=== PATIENT | female | born 1955 | race Caucasian/White ===

== ENCOUNTER 2016-12-07 15:51 | Emergency (ER) | payer BC ==
[~2016-12-07] VITALS: Ht 165.1 cm; Wt 56.8 kg
[~2016-12-07 15:51] MED LIST: AMOXICILLIN875 MG PO; ANDRODERM2.5 MG/24 TD; B COMPLEX1 TA2 PO; BIOTIN1000 MCG PO; CARDI-OMEGA1000 MG PO; CENTRUM SILVER1 CTB PO; CEPHALEXIN500 M1 PO; CHILDREN'S ZYRT10 MG PO; CIPRO 500MG TA500 MG PO; CITRACAL + D CA1 TAB PO; CLOBETASOL PROP0.052 TOP; D-BIOTIN 500 M500 ML; ESTRACE0.1 MG/GM VG; ESTRADIOL VAG42.5 GM VG; FLONASE NASAL S16 GM NS; GLUTAMINE; LEVAQUIN 250MG250 MG PO; LIQUID MAGNESI400 MG PO; LUTEIN + KALE 11 CAP PO; MAGNESIUM250 M1 PO; MULTIVITAMIN FO1 CAP PO; NATURAL E400 IU PO; NORCO 325 MG-51 TAB PO; NORCO 325 MG-7.1 TAB PO; OMEGA-3 FISH1200 MG PO; SEPTRA DS 8001 TAB PO; SUPER B COMPLEX1 TA2 PO; TEMOVATE CREAM15 GM TP; TESTOSTERONE TOP; VITAMIN B650 MG PO; VITAMIN D31000 IU PO; XANAX .25M0.25 MG/TA PO; ZYRTEC 10MG10 MG PO; ZYRTEC ALLERGY10 MG PO
[2016-12-07 15:55] VITALS: TEMP 98.3
[2016-12-07] MEDS ORDERED: ESTRACE0.1 MG/GM VG (16:19)
[2016-12-07] MEDS ORDERED: [UNRECOGNIZED DRUG - OTHER] PO (16:20)
[2016-12-07 17:02] LABS: PH 6 (5-8); SQUAMOUS EPITHELIAL 0-2 /hpf; URINE APPEARANCE Clear; URINE BACTERIA None Seen /hpf; URINE BILIRUBIN Negative (NEGATIVE); URINE BLOOD Negative (NEGATIVE); URINE COLOR Straw; URINE GLUCOSE Negative (NEGATIVE); URINE KETONE Negative (NEGATIVE); URINE RBC 0-2 /hpf; URINE UROBILINOGEN Negative (NEGATIVE); URINE WBC 0-2 /hpf
[2016-12-07 18:21] LABS: ADJUSTED CALCIUM 8.8 mg/dL (8.4-10.2); ALBUMIN 4.1 gm/dL (3.5-5.0); BILIRUBIN,TOTAL 0.7 mg/dL (0.0-1.0); CALCIUM 8.9 mg/dL (8.4-10.2); CREATININE, serum 0.66 mg/dL (0.52-1.25); POTASSIUM 3.9 mmol/L (3.4-5.0); TOTAL PROTEIN 7.1 gm/dL (6.4-8.2)
[2016-12-07] MEDS ORDERED: FLEXERIL 1010 MG/TAB PO (19:34)
[2016-12-07 19:41] VITALS: BP 108/51; PULSE 61
== END 2016-12-07 19:42 | disposition home or self-care (01) ==
LOC: COL.ER 15:51
PROVIDERS: Emergency Medicine
DX: R10.31 Right lower quadrant pain (principal); M19.90 Unspecified osteoarthritis, unspecified site; Z85.3 Personal history of malignant neoplasm of breast; Z85.89 Personal history of malignant neoplasm of other organs and systems; Z90.710 Acquired absence of both cervix and uterus; Z90.722 Acquired absence of ovaries, bilateral; Z90.49 Acquired absence of other specified parts of digestive tract
CPT/HCPCS: J1885; J7030; Q9967

== ENCOUNTER 2017-07-25 13:00 | Outpatient (RCR) | payer BC ==
[2017-06-14 08:40] VITALS: BP 109/46; PULSE 58; TEMP 97.9
[2017-06-14 09:15] LABS: BASO % 0.7 % (0.0-2.0); EOS # 0.1 (0.0-0.7); EOS % 1.4 % (0-4.0); GRAN # 2.1 (1.4-6.5); GRAN % 50.2 % (42.2-75.2); HEMATOCRIT 39.2 % (37.0-47.0); HEMOGLOBIN 13.3 g/dl (12.5-16.0); LYMPH # 1.6 (1.2-3.4); LYMPH % 37.2 % (20.0-51.0); MEAN CELL VOLUME 104 fl (80.0-100.0); MEAN CORPUSCULAR HEMOGLOBIN 35 pg (27.0-31.0); MEAN CORPUSCULAR HGB CONC 34 g/dl (33.0-37.0); MEAN PLATELET VOLUME 10.3 fl (7.4-10.4); MONO # 0.4 (0.1-0.6); MONO % 10.3 % (1.7-9.3); PLATELET COUNT 228 K/mm3 (130-400); RED BLOOD COUNT 3.77 M/mm3 (4.10-5.30); REDCELL DISTRIBUTION WIDTH-CV 13.7 % (11.5-14.5)
[2017-06-14 09:29] LABS: ALBUMIN 4.4 gm/dL (3.5-5.0); BILIRUBIN,TOTAL 0.6 mg/dL (0.0-1.0); CALCIUM 9.2 mg/dL (8.4-10.2); CHOLESTEROL RISK RATIO 4.3; CREATININE, serum 0.59 mg/dL (0.52-1.25); POTASSIUM 3.9 mmol/L (3.4-5.0); TOTAL PROTEIN 7.1 gm/dL (6.4-8.2)
[2017-06-14 09:58] LABS: THYROID STIMULATING HORMONE 2.64 uIU/mL (0.465-4.680)
[~2017-07-25] VITALS: Ht 167.6 cm; Wt 60.0 kg
[~2017-07-25 13:00] MED LIST changes: +AMITRIPTYLINE H10 M1 PO; +FLEXERIL 1010 MG/TAB PO; -TEMOVATE CREAM15 GM TP; +TEMOVATE0.05% TP; +[UNRECOGNIZED DRUG - OTHER] PO
[2017-07-25 13:45] LABS: HEMATOCRIT 40.3 % (37.0-47.0); HEMOGLOBIN 13.7 g/dl (12.5-16.0); MEAN CELL VOLUME 99 fl (80.0-100.0); MEAN CORPUSCULAR HEMOGLOBIN 34 pg (27.0-31.0); MEAN CORPUSCULAR HGB CONC 34 g/dl (33.0-37.0); MEAN PLATELET VOLUME 9.7 fl (7.4-10.4); PLATELET COUNT 200 K/mm3 (130-400); RED BLOOD COUNT 4.08 M/mm3 (4.10-5.30); REDCELL DISTRIBUTION WIDTH-CV 13.2 % (11.5-14.5)
[2017-07-25 13:50] VITALS: BP 108/52; PULSE 60; TEMP 97.8
[2017-07-25 13:55] LABS: ALBUMIN 4.7 gm/dL (3.5-5.0); BILIRUBIN,TOTAL 0.6 mg/dL (0.0-1.0); CALCIUM 9.5 mg/dL (8.4-10.2); CREATININE, serum 0.67 mg/dL (0.52-1.25); POTASSIUM 4.1 mmol/L (3.4-5.0); TOTAL PROTEIN 7.8 gm/dL (6.4-8.2)
[2017-07-25 14:04] LABS: EOSINOPHIL 1 % (0-4); LYMPHOCYTE 40 % (20.0-51.0); NEUTROPHILS 54 % (42.0-75.2); PLATELET ESTIMATE NORMAL (NORMAL)
== END 2017-07-25 16:00 | disposition home or self-care (01) ==
LOC: EUO 13:00
PROVIDERS: Internal Medicine
DX: Z00.00 Encounter for general adult medical examination without abnormal findings (principal); C48.2 Malignant neoplasm of peritoneum, unspecified
CPT/HCPCS: J1644

== ENCOUNTER 2017-07-25 13:11 | Outpatient (RCR) | payer BC | END 2017-07-25 16:00 | disposition home or self-care (01) | LOC: EUO 13:11 | DX: Z01.89 Encounter for other specified special examinations (principal) ==

== ENCOUNTER → 2017-10-20 | Outpatient (CLI) | payer BC ==
[~2017-10-20] MED LIST changes: +CYTOXAN 50 PO
== END ==
LOC: MC.RAD 10:17
DX: N61.0 Mastitis without abscess (principal); N64.59 Other signs and symptoms in breast; R92.2 Inconclusive mammogram; C48.1 Malignant neoplasm of specified parts of peritoneum; N64.4 Mastodynia; L53.9 Erythematous condition, unspecified; Z85.3 Personal history of malignant neoplasm of breast

== ENCOUNTER 2017-11-07 14:30 | Outpatient (RCR) | payer BC ==
[2017-08-14 12:00] VITALS: BP 115/52; PULSE 62; TEMP 97.7
[2017-08-14 12:23] LABS: ALBUMIN 4.6 gm/dL (3.5-5.0); BILIRUBIN,TOTAL 0.6 mg/dL (0.0-1.0); CALCIUM 9.5 mg/dL (8.4-10.2); CREATININE, serum 0.66 mg/dL (0.52-1.25); POTASSIUM 4.1 mmol/L (3.4-5.0); TOTAL PROTEIN 7.7 gm/dL (6.4-8.2)
[2017-08-14 12:33] LABS: HEMATOCRIT 42.2 % (37.0-47.0); HEMOGLOBIN 14.3 g/dl (12.5-16.0); MEAN CELL VOLUME 99 fl (80.0-100.0); MEAN CORPUSCULAR HEMOGLOBIN 34 pg (27.0-31.0); MEAN CORPUSCULAR HGB CONC 34 g/dl (33.0-37.0); MEAN PLATELET VOLUME 10.1 fl (7.4-10.4); PLATELET COUNT 219 K/mm3 (130-400); RED BLOOD COUNT 4.27 M/mm3 (4.10-5.30); REDCELL DISTRIBUTION WIDTH-CV 13.4 % (11.5-14.5)
[2017-08-14 13:36] LABS: BAND 3 % (0-10); BASOPHIL 1 % (0-2); EOSINOPHIL 3 % (0-4); LYMPHOCYTE 50 % (20.0-51.0); METAMYELOCYTE 1 % (0-0); NEUTROPHILS 31 % (42.0-75.2); PLATELET ESTIMATE NORMAL (NORMAL)
[2017-08-14 13:37] LABS: TOXIC GRANULATION PRESENT
[2017-09-04 13:18] VITALS: BP 119/62; PULSE 73; TEMP 98.1
[2017-09-04 13:36] LABS: HEMATOCRIT 41.1 % (37.0-47.0); HEMOGLOBIN 13.7 g/dl (12.5-16.0); MEAN CELL VOLUME 97 fl (80.0-100.0); MEAN CORPUSCULAR HEMOGLOBIN 33 pg (27.0-31.0); MEAN CORPUSCULAR HGB CONC 33 g/dl (33.0-37.0); PLATELET COUNT 210 K/mm3 (130-400); RED BLOOD COUNT 4.22 M/mm3 (4.10-5.30); REDCELL DISTRIBUTION WIDTH-CV 13.6 % (11.5-14.5)
[2017-09-04 13:47] LABS: ALBUMIN 4.4 gm/dL (3.5-5.0); BILIRUBIN,TOTAL 0.4 mg/dL (0.0-1.0); CALCIUM 9.4 mg/dL (8.4-10.2); CREATININE, serum 0.66 mg/dL (0.52-1.25); POTASSIUM 3.9 mmol/L (3.4-5.0); TOTAL PROTEIN 7.2 gm/dL (6.4-8.2)
[2017-09-04 14:05] LABS: BAND 8 % (0-10); EOSINOPHIL 1 % (0-4); LYMPHOCYTE 29 % (20.0-51.0); METAMYELOCYTE 1 % (0-0); NEUTROPHILS 61 % (42.0-75.2); PLATELET ESTIMATE NORMAL (NORMAL)
[2017-09-25 12:30] VITALS: BP 124/46; PULSE 72; TEMP 97.4
[2017-09-25 13:06] LABS: HEMATOCRIT 40.6 % (37.0-47.0); HEMOGLOBIN 13.9 g/dl (12.5-16.0); MEAN CELL VOLUME 96 fl (80.0-100.0); MEAN CORPUSCULAR HEMOGLOBIN 33 pg (27.0-31.0); MEAN CORPUSCULAR HGB CONC 34 g/dl (33.0-37.0); MEAN PLATELET VOLUME 9.6 fl (7.4-10.4); PLATELET COUNT 193 K/mm3 (130-400); RED BLOOD COUNT 4.23 M/mm3 (4.10-5.30)
[2017-09-25 13:26] LABS: BAND 9 % (0-10); BASOPHIL 1 % (0-2); EOSINOPHIL 2 % (0-4); LYMPHOCYTE 22 % (20.0-51.0); NEUTROPHILS 63 % (42.0-75.2)
[2017-09-25 13:27] LABS: PLATELET ESTIMATE NORMAL (NORMAL)
[2017-09-25 13:39] LABS: ALBUMIN 4.3 gm/dL (3.5-5.0); BILIRUBIN,TOTAL 0.5 mg/dL (0.0-1.0); CREATININE, serum 0.62 mg/dL (0.52-1.25); POTASSIUM 4.4 mmol/L (3.4-5.0); TOTAL PROTEIN 7.3 gm/dL (6.4-8.2)
[2017-10-16 13:14] VITALS: BP 112/50; PULSE 68; TEMP 98
[2017-10-16 13:24] LABS: HEMATOCRIT 40.8 % (37.0-47.0); MEAN CELL VOLUME 96 fl (80.0-100.0); MEAN CORPUSCULAR HEMOGLOBIN 33 pg (27.0-31.0); MEAN CORPUSCULAR HGB CONC 34 g/dl (33.0-37.0); MEAN PLATELET VOLUME 9.6 fl (7.4-10.4); PLATELET COUNT 214 K/mm3 (130-400); RED BLOOD COUNT 4.27 M/mm3 (4.10-5.30); REDCELL DISTRIBUTION WIDTH-CV 14.3 % (11.5-14.5)
[2017-10-16 13:33] LABS: ALBUMIN 4.1 gm/dL (3.5-5.0); BILIRUBIN,TOTAL 0.5 mg/dL (0.0-1.0); CALCIUM 9.2 mg/dL (8.4-10.2); CREATININE, serum 0.58 mg/dL (0.52-1.25); POTASSIUM 4.1 mmol/L (3.4-5.0); TOTAL PROTEIN 7.6 gm/dL (6.4-8.2)
[2017-10-16 13:39] LABS: ANISOCYTOSIS 1+; BAND 4 % (0-10); EOSINOPHIL 3 % (0-4); LYMPHOCYTE 26 % (20.0-51.0); NEUTROPHILS 66 % (42.0-75.2); PLATELET ESTIMATE NORMAL (NORMAL)
[2017-11-02 11:30] VITALS: BP 116/62; PULSE 66; TEMP 97.9
[2017-11-02 11:43] LABS: MEAN CELL VOLUME 98 fl (80.0-100.0); MEAN CORPUSCULAR HEMOGLOBIN 33 pg (27.0-31.0); MEAN CORPUSCULAR HGB CONC 34 g/dl (33.0-37.0); PLATELET COUNT 174 K/mm3 (130-400); RED BLOOD COUNT 3.89 M/mm3 (4.10-5.30); REDCELL DISTRIBUTION WIDTH-CV 13.2 % (11.5-14.5)
[2017-11-02 11:56] LABS: BILIRUBIN,TOTAL 0.4 mg/dL (0.0-1.0); CALCIUM 9.3 mg/dL (8.4-10.2); CREATININE, serum 0.58 mg/dL (0.52-1.25); TOTAL PROTEIN 7.6 gm/dL (6.4-8.2)
[2017-11-02 12:31] LABS: BAND 5 % (0-10); EOSINOPHIL 4 % (0-4); LYMPHOCYTE 25 % (20.0-51.0); NEUTROPHILS 66 % (42.0-75.2); PLATELET ESTIMATE NORMAL (NORMAL)
[~2017-11-07] VITALS: Ht 167.6 cm; Wt 62.5 kg
[2017-11-07 14:14] VITALS: BP 127/52; PULSE 72; TEMP 98
[~2017-11-07 14:30] MED LIST changes: +GEMZAR IV; +[UNRECOGNIZED DRUG - OTHER] IV
[2017-11-07 14:43] LABS: HEMOGLOBIN 12.1 g/dl (12.5-16.0); MEAN CELL VOLUME 98 fl (80.0-100.0); MEAN CORPUSCULAR HEMOGLOBIN 34 pg (27.0-31.0); MEAN CORPUSCULAR HGB CONC 34 g/dl (33.0-37.0); MEAN PLATELET VOLUME 9.4 fl (7.4-10.4); PLATELET COUNT 130 K/mm3 (130-400); RED BLOOD COUNT 3.61 M/mm3 (4.10-5.30); REDCELL DISTRIBUTION WIDTH-CV 13.2 % (11.5-14.5)
[2017-11-07 14:48] LABS: HEMATOCRIT 35.4 % (37.0-47.0)
[2017-11-07 14:50] LABS: ALBUMIN 3.9 gm/dL (3.5-5.0); BILIRUBIN,TOTAL 0.5 mg/dL (0.0-1.0); CALCIUM 9.1 mg/dL (8.4-10.2); CREATININE, serum 0.56 mg/dL (0.52-1.25); TOTAL PROTEIN 7.5 gm/dL (6.4-8.2)
[2017-11-07 14:53] LABS: ANISOCYTOSIS 1+; BAND 2 % (0-10); LYMPHOCYTE 21 % (20.0-51.0); NEUTROPHILS 76 % (42.0-75.2); PLATELET ESTIMATE NORMAL (NORMAL)
== END 2017-11-12 | disposition still patient (30) ==
LOC: EUO
PROVIDERS: Internal Medicine
DX: C48.1 Malignant neoplasm of specified parts of peritoneum (principal)
CPT/HCPCS: J1644

== ENCOUNTER 2018-01-29 08:00 | Outpatient (RCR) | payer BC ==
[2017-11-16 11:35] VITALS: BP 112/83; PULSE 72; TEMP 98
[2017-11-16 12:06] LABS: HEMATOCRIT 34.6 % (37.0-47.0); HEMOGLOBIN 11.5 g/dl (12.5-16.0); MEAN CELL VOLUME 101 fl (80.0-100.0); MEAN CORPUSCULAR HEMOGLOBIN 33 pg (27.0-31.0); MEAN CORPUSCULAR HGB CONC 33 g/dl (33.0-37.0); MEAN PLATELET VOLUME 9.4 fl (7.4-10.4); PLATELET COUNT 303 K/mm3 (130-400); RED BLOOD COUNT 3.44 M/mm3 (4.10-5.30); REDCELL DISTRIBUTION WIDTH-CV 14.2 % (11.5-14.5)
[2017-11-16 12:17] LABS: ALBUMIN 3.4 gm/dL (3.5-5.0); BILIRUBIN,TOTAL 0.2 mg/dL (0.0-1.0); CALCIUM 7.8 mg/dL (8.4-10.2); CREATININE, serum 0.49 mg/dL (0.52-1.25); POTASSIUM 3.4 mmol/L (3.4-5.0); TOTAL PROTEIN 6.2 gm/dL (6.4-8.2)
[2017-11-16 13:13] LABS: ANISOCYTOSIS 1+; BAND 13 % (0-10); EOSINOPHIL 3 % (0-4); LYMPHOCYTE 37 % (20.0-51.0); METAMYELOCYTE 2 % (0-0); NEUTROPHILS 43 % (42.0-75.2); PLATELET ESTIMATE NORMAL (NORMAL)
[2017-11-21 14:43] LABS: HEMOGLOBIN 12.3 g/dl (12.5-16.0); MEAN CELL VOLUME 100 fl (80.0-100.0); MEAN CORPUSCULAR HEMOGLOBIN 34 pg (27.0-31.0); MEAN CORPUSCULAR HGB CONC 34 g/dl (33.0-37.0); MEAN PLATELET VOLUME 9.6 fl (7.4-10.4); PLATELET COUNT 414 K/mm3 (130-400); RED BLOOD COUNT 3.67 M/mm3 (4.10-5.30); REDCELL DISTRIBUTION WIDTH-CV 13.5 % (11.5-14.5)
[2017-11-21 14:46] VITALS: BP 115/45; PULSE 69; TEMP 97.9
[2017-11-21 14:47] LABS: BILIRUBIN,TOTAL 0.5 mg/dL (0.0-1.0); CALCIUM 9.1 mg/dL (8.4-10.2); CREATININE, serum 0.61 mg/dL (0.52-1.25); TOTAL PROTEIN 7.6 gm/dL (6.4-8.2)
[2017-11-21 14:54] LABS: HEMATOCRIT 36.5 % (37.0-47.0)
[2017-11-21 15:13] LABS: ANISOCYTOSIS 1+; BAND 3 % (0-10); EOSINOPHIL 3 % (0-4); LYMPHOCYTE 18 % (20.0-51.0); NEUTROPHILS 74 % (42.0-75.2); PLATELET ESTIMATE NORMAL (NORMAL)
[2017-11-28 14:33] LABS: HEMOGLOBIN 11.7 g/dl (12.5-16.0); MEAN CELL VOLUME 101 fl (80.0-100.0); MEAN CORPUSCULAR HEMOGLOBIN 34 pg (27.0-31.0); MEAN CORPUSCULAR HGB CONC 33 g/dl (33.0-37.0); MEAN PLATELET VOLUME 9.7 fl (7.4-10.4); PLATELET COUNT 200 K/mm3 (130-400); RED BLOOD COUNT 3.47 M/mm3 (4.10-5.30); REDCELL DISTRIBUTION WIDTH-CV 13.7 % (11.5-14.5)
[2017-11-28 14:45] LABS: ALBUMIN 3.9 gm/dL (3.5-5.0); BILIRUBIN,TOTAL 0.5 mg/dL (0.0-1.0); CALCIUM 9.1 mg/dL (8.4-10.2); CREATININE, serum 0.6 mg/dL (0.52-1.25); POTASSIUM 4.2 mmol/L (3.4-5.0); TOTAL PROTEIN 7.1 gm/dL (6.4-8.2)
[2017-11-28 15:01] LABS: BAND 2 % (0-10); EOSINOPHIL 2 % (0-4); LYMPHOCYTE 25 % (20.0-51.0); NEUTROPHILS 71 % (42.0-75.2); PLATELET ESTIMATE NORMAL (NORMAL)
[2017-11-28 15:02] LABS: ANISOCYTOSIS 2+; MICROCYTOSIS 1+
[2017-12-05 14:20] VITALS: BP 125/55; PULSE 75; TEMP 98.1
[2017-12-05 14:36] LABS: HEMATOCRIT 37.5 % (37.0-47.0); HEMOGLOBIN 12.6 g/dl (12.5-16.0); MEAN CELL VOLUME 101 fl (80.0-100.0); MEAN CORPUSCULAR HEMOGLOBIN 34 pg (27.0-31.0); MEAN CORPUSCULAR HGB CONC 34 g/dl (33.0-37.0); MEAN PLATELET VOLUME 9.9 fl (7.4-10.4); PLATELET COUNT 164 K/mm3 (130-400); RED BLOOD COUNT 3.71 M/mm3 (4.10-5.30); REDCELL DISTRIBUTION WIDTH-CV 14.4 % (11.5-14.5)
[2017-12-05 14:50] LABS: ALBUMIN 4.1 gm/dL (3.5-5.0); BILIRUBIN,TOTAL 0.5 mg/dL (0.0-1.0); CALCIUM 9.1 mg/dL (8.4-10.2); CREATININE, serum 0.64 mg/dL (0.52-1.25); POTASSIUM 4.2 mmol/L (3.4-5.0); TOTAL PROTEIN 7.6 gm/dL (6.4-8.2)
[2017-12-05 15:10] LABS: BAND 4 % (0-10); EOSINOPHIL 2 % (0-4); LYMPHOCYTE 29 % (20.0-51.0); MYELOCYTE 1 % (0-0); NEUTROPHILS 63 % (42.0-75.2); PLATELET ESTIMATE NORMAL (NORMAL)
[2017-12-05 15:11] LABS: ANISOCYTOSIS 3+; MICROCYTOSIS 1+
[2017-12-11 09:57] LABS: HEMATOCRIT 37.4 % (37.0-47.0); HEMOGLOBIN 12.6 g/dl (12.5-16.0); MEAN CELL VOLUME 99 fl (80.0-100.0); MEAN CORPUSCULAR HEMOGLOBIN 33 pg (27.0-31.0); MEAN CORPUSCULAR HGB CONC 34 g/dl (33.0-37.0); MEAN PLATELET VOLUME 9.7 fl (7.4-10.4); PLATELET COUNT 308 K/mm3 (130-400); RED BLOOD COUNT 3.78 M/mm3 (4.10-5.30); REDCELL DISTRIBUTION WIDTH-CV 14.2 % (11.5-14.5)
[2017-12-11 10:16] LABS: BILIRUBIN,TOTAL 0.9 mg/dL (0.0-1.0); CALCIUM 9.4 mg/dL (8.4-10.2); CREATININE, serum 0.59 mg/dL (0.52-1.25); POTASSIUM 4.3 mmol/L (3.4-5.0); TOTAL PROTEIN 7.5 gm/dL (6.4-8.2)
[2017-12-11 10:40] VITALS: BP 121/44; PULSE 71; TEMP 98.4
[2017-12-11 10:57] LABS: BAND 4 % (0-10); LYMPHOCYTE 28 % (20.0-51.0); NEUTROPHILS 65 % (42.0-75.2); OVALOCYTES 1+; PLATELET ESTIMATE NORMAL (NORMAL)
[2017-12-19 14:11] VITALS: BP 114/49; PULSE 69; TEMP 98.4
[2017-12-19 14:11] LABS: HEMOGLOBIN 11.9 g/dl (12.5-16.0); MEAN CELL VOLUME 101 fl (80.0-100.0); MEAN CORPUSCULAR HEMOGLOBIN 34 pg (27.0-31.0); MEAN CORPUSCULAR HGB CONC 33 g/dl (33.0-37.0); MEAN PLATELET VOLUME 9.8 fl (7.4-10.4); PLATELET COUNT 213 K/mm3 (130-400); RED BLOOD COUNT 3.55 M/mm3 (4.10-5.30); REDCELL DISTRIBUTION WIDTH-CV 14.3 % (11.5-14.5)
[2017-12-19 14:13] LABS: HEMATOCRIT 35.8 % (37.0-47.0)
[2017-12-19 14:18] LABS: ALBUMIN 3.8 gm/dL (3.5-5.0); BILIRUBIN,TOTAL 0.6 mg/dL (0.0-1.0); CALCIUM 9.1 mg/dL (8.4-10.2); CREATININE, serum 0.64 mg/dL (0.52-1.25); POTASSIUM 4.1 mmol/L (3.4-5.0); TOTAL PROTEIN 7.2 gm/dL (6.4-8.2)
[2017-12-19 14:42] LABS: BAND 1 % (0-10); BASOPHIL 1 % (0-2); EOSINOPHIL 3 % (0-4); LYMPHOCYTE 22 % (20.0-51.0); METAMYELOCYTE 1 % (0-0); NEUTROPHILS 71 % (42.0-75.2); PLATELET ESTIMATE NORMAL (NORMAL)
[2017-12-26 14:12] VITALS: BP 122/61; PULSE 65; TEMP 97.4
[2017-12-26 14:43] LABS: HEMATOCRIT 37.4 % (37.0-47.0); HEMOGLOBIN 12.5 g/dl (12.5-16.0); MEAN CELL VOLUME 101 fl (80.0-100.0); MEAN CORPUSCULAR HEMOGLOBIN 34 pg (27.0-31.0); MEAN CORPUSCULAR HGB CONC 33 g/dl (33.0-37.0); MEAN PLATELET VOLUME 9.7 fl (7.4-10.4); PLATELET COUNT 195 K/mm3 (130-400); RED BLOOD COUNT 3.71 M/mm3 (4.10-5.30); REDCELL DISTRIBUTION WIDTH-CV 14.9 % (11.5-14.5)
[2017-12-26 14:46] LABS: BILIRUBIN,TOTAL 0.3 mg/dL (0.0-1.0); CALCIUM 9.3 mg/dL (8.4-10.2); CREATININE, serum 0.69 mg/dL (0.52-1.25); TOTAL PROTEIN 7.4 gm/dL (6.4-8.2)
[2017-12-26 15:01] LABS: BAND 4 % (0-10); EOSINOPHIL 2 % (0-4); LYMPHOCYTE 26 % (20.0-51.0); NEUTROPHILS 55 % (42.0-75.2)
[2017-12-26 15:02] LABS: PLATELET ESTIMATE NORMAL (NORMAL)
[2018-01-02 14:24] VITALS: BP 113/40; PULSE 69; TEMP 98.3
[2018-01-02 14:58] LABS: HEMOGLOBIN 12.2 g/dl (12.5-16.0); MEAN CELL VOLUME 99 fl (80.0-100.0); MEAN CORPUSCULAR HEMOGLOBIN 34 pg (27.0-31.0); MEAN CORPUSCULAR HGB CONC 34 g/dl (33.0-37.0); MEAN PLATELET VOLUME 10.2 fl (7.4-10.4); PLATELET COUNT 357 K/mm3 (130-400); RED BLOOD COUNT 3.64 M/mm3 (4.10-5.30); REDCELL DISTRIBUTION WIDTH-CV 14.2 % (11.5-14.5)
[2018-01-02 15:02] LABS: HEMATOCRIT 36.1 % (37.0-47.0)
[2018-01-02 15:08] LABS: ALBUMIN 3.9 gm/dL (3.5-5.0); BILIRUBIN,TOTAL 0.4 mg/dL (0.0-1.0); CALCIUM 9.2 mg/dL (8.4-10.2); CREATININE, serum 0.67 mg/dL (0.52-1.25); TOTAL PROTEIN 7.4 gm/dL (6.4-8.2)
[2018-01-02 15:25] LABS: EOSINOPHIL 4 % (0-4); LYMPHOCYTE 20 % (20.0-51.0); NEUTROPHILS 76 % (42.0-75.2)
[2018-01-02 15:26] LABS: ANISOCYTOSIS 1+; PLATELET ESTIMATE NORMAL (NORMAL)
[2018-01-09 07:35] VITALS: BP 116/61; PULSE 64; TEMP 97.3
[2018-01-09 07:50] LABS: HEMATOCRIT 37.1 % (37.0-47.0); HEMOGLOBIN 12.2 g/dl (12.5-16.0); MEAN CELL VOLUME 102 fl (80.0-100.0); MEAN CORPUSCULAR HEMOGLOBIN 33 pg (27.0-31.0); MEAN CORPUSCULAR HGB CONC 33 g/dl (33.0-37.0); MEAN PLATELET VOLUME 9.9 fl (7.4-10.4); PLATELET COUNT 217 K/mm3 (130-400); RED BLOOD COUNT 3.65 M/mm3 (4.10-5.30); REDCELL DISTRIBUTION WIDTH-CV 14.5 % (11.5-14.5)
[2018-01-09 08:00] LABS: ALBUMIN 4.1 gm/dL (3.5-5.0); BILIRUBIN,TOTAL 0.5 mg/dL (0.0-1.0); CALCIUM 8.8 mg/dL (8.4-10.2); CREATININE, serum 0.55 mg/dL (0.52-1.25); TOTAL PROTEIN 7.4 gm/dL (6.4-8.2)
[2018-01-09 11:10] LABS: BASOPHIL 1 % (0-2); EOSINOPHIL 7 % (0-4); LYMPHOCYTE 27 % (20.0-51.0); NEUTROPHILS 52 % (42.0-75.2); OVALOCYTES 1+; PLATELET ESTIMATE NORMAL (NORMAL)
[2018-01-09 11:11] LABS: HYPOCHROMIA 1+
[2018-01-16 14:46] VITALS: BP 121/51; PULSE 73; TEMP 98.6
[2018-01-16 14:52] LABS: HEMOGLOBIN 11.8 g/dl (12.5-16.0); MEAN CELL VOLUME 102 fl (80.0-100.0); MEAN CORPUSCULAR HEMOGLOBIN 33 pg (27.0-31.0); MEAN CORPUSCULAR HGB CONC 33 g/dl (33.0-37.0); MEAN PLATELET VOLUME 9.7 fl (7.4-10.4); PLATELET COUNT 183 K/mm3 (130-400); RED BLOOD COUNT 3.56 M/mm3 (4.10-5.30); REDCELL DISTRIBUTION WIDTH-CV 15.1 % (11.5-14.5)
[2018-01-16 14:57] LABS: HEMATOCRIT 36.2 % (37.0-47.0)
[2018-01-16 15:02] LABS: BILIRUBIN,TOTAL 0.3 mg/dL (0.0-1.0); CALCIUM 8.9 mg/dL (8.4-10.2); CREATININE, serum 0.67 mg/dL (0.52-1.25); POTASSIUM 3.7 mmol/L (3.4-5.0); TOTAL PROTEIN 7.1 gm/dL (6.4-8.2)
[2018-01-16 15:10] LABS: ANISOCYTOSIS 1+; BAND 8 % (0-10); EOSINOPHIL 2 % (0-4); LYMPHOCYTE 26 % (20.0-51.0); NEUTROPHILS 63 % (42.0-75.2); PLATELET ESTIMATE NORMAL (NORMAL)
[2018-01-23 14:50] VITALS: BP 104/52; PULSE 69; TEMP 98.9
[2018-01-23 15:03] LABS: HEMOGLOBIN 11.7 g/dl (12.5-16.0); MEAN CELL VOLUME 100 fl (80.0-100.0); MEAN CORPUSCULAR HEMOGLOBIN 33 pg (27.0-31.0); MEAN CORPUSCULAR HGB CONC 33 g/dl (33.0-37.0); MEAN PLATELET VOLUME 9.8 fl (7.4-10.4); PLATELET COUNT 376 K/mm3 (130-400); RED BLOOD COUNT 3.55 M/mm3 (4.10-5.30); REDCELL DISTRIBUTION WIDTH-CV 14.4 % (11.5-14.5)
[2018-01-23 15:05] LABS: HEMATOCRIT 35.5 % (37.0-47.0)
[2018-01-23 15:12] LABS: BILIRUBIN,TOTAL 0.3 mg/dL (0.0-1.0); CALCIUM 9.1 mg/dL (8.4-10.2); CREATININE, serum 0.62 mg/dL (0.52-1.25); POTASSIUM 4.3 mmol/L (3.4-5.0)
[2018-01-23 15:27] LABS: ANISOCYTOSIS 2+; BAND 3 % (0-10); BASOPHIL 3 % (0-2); EOSINOPHIL 1 % (0-4); LYMPHOCYTE 20 % (20.0-51.0); METAMYELOCYTE 1 % (0-0); MICROCYTOSIS 1+; MYELOCYTE 10 % (0-0); NEUTROPHILS 61 % (42.0-75.2); PLATELET ESTIMATE NORMAL (NORMAL)
[~2018-01-29] VITALS: Ht 167.6 cm; Wt 61.0 kg
[2018-01-29 08:00] VITALS: BP 100/52; PULSE 62; TEMP 98
[2018-01-29 08:37] LABS: HEMATOCRIT 37.9 % (37.0-47.0); HEMOGLOBIN 12.3 g/dl (12.5-16.0); MEAN CELL VOLUME 102 fl (80.0-100.0); MEAN CORPUSCULAR HEMOGLOBIN 33 pg (27.0-31.0); MEAN CORPUSCULAR HGB CONC 33 g/dl (33.0-37.0); MEAN PLATELET VOLUME 9.7 fl (7.4-10.4); PLATELET COUNT 248 K/mm3 (130-400); RED BLOOD COUNT 3.73 M/mm3 (4.10-5.30); REDCELL DISTRIBUTION WIDTH-CV 14.6 % (11.5-14.5)
[2018-01-29 08:41] LABS: ALBUMIN 4.2 gm/dL (3.5-5.0); BILIRUBIN,TOTAL 0.9 mg/dL (0.0-1.0); CALCIUM 9.3 mg/dL (8.4-10.2); CREATININE, serum 0.58 mg/dL (0.52-1.25); POTASSIUM 3.9 mmol/L (3.4-5.0); TOTAL PROTEIN 7.4 gm/dL (6.4-8.2)
[2018-01-29 09:11] LABS: BAND 2 % (0-10); EOSINOPHIL 1 % (0-4); LYMPHOCYTE 28 % (20.0-51.0); NEUTROPHILS 67 % (42.0-75.2)
[2018-01-29 09:15] LABS: HYPOCHROMIA 1+
[2018-01-29 09:16] LABS: ANISOCYTOSIS 1+
[2018-01-29 09:18] LABS: PLATELET ESTIMATE NORMAL (NORMAL)
== END 2018-02-06 16:54 | disposition home or self-care (01) ==
LOC: EUO 08:00
PROVIDERS: Internal Medicine
DX: C48.1 Malignant neoplasm of specified parts of peritoneum (principal)
CPT/HCPCS: J1644

== ENCOUNTER 2018-04-11 18:59 | Inpatient (IN) | payer BC ==
[~2018-04-11] VITALS: Ht 165.1 cm; Wt 59.1 kg
[2018-04-11 19:53] LABS: BASO % 0.6 % (0.0-2.0); EOS % 0.6 % (0-4.0); GRAN # 4.6 (1.4-6.5); GRAN % 72.1 % (42.2-75.2); HEMOGLOBIN 11.1 g/dl (12.5-16.0); LYMPH # 1.1 (1.2-3.4); LYMPH % 16.6 % (20.0-51.0); MEAN CELL VOLUME 95 fl (80.0-100.0); MEAN CORPUSCULAR HEMOGLOBIN 31 pg (27.0-31.0); MEAN CORPUSCULAR HGB CONC 33 g/dl (33.0-37.0); MEAN PLATELET VOLUME 9.8 fl (7.4-10.4); MONO # 0.6 (0.1-0.6); MONO % 9.8 % (1.7-9.3); PLATELET COUNT 315 K/mm3 (130-400); RED BLOOD COUNT 3.58 M/mm3 (4.10-5.30); REDCELL DISTRIBUTION WIDTH-CV 14.2 % (11.5-14.5)
[2018-04-11 19:55] LABS: COLLECTION METHOD CLEAN CATCH
[2018-04-11 19:58] LABS: HEMATOCRIT 34.1 % (37.0-47.0)
[2018-04-11 20:04] LABS: ALBUMIN 3.6 gm/dL (3.5-5.0); BILIRUBIN,TOTAL 0.3 mg/dL (0.0-1.0); C-REACTIVE PROTEIN 6.8 mg/dL (0.0-0.9); CALCIUM 8.7 mg/dL (8.4-10.2); CREATININE, serum 0.56 mg/dL (0.52-1.25); POTASSIUM 3.8 mmol/L (3.4-5.0)
[2018-04-11 20:10] LABS: MUCOUS Present /lpf; PH 7 (5-8); SQUAMOUS EPITHELIAL 0-2 /hpf; URINE APPEARANCE Clear; URINE BACTERIA None Seen /hpf; URINE BILIRUBIN Negative (NEGATIVE); URINE BLOOD Negative (NEGATIVE); URINE COLOR Straw; URINE GLUCOSE Negative (NEGATIVE); URINE KETONE Negative (NEGATIVE); URINE LEUKOCYTE ESTERASE Negative (NEGATIVE); URINE NITRATE Negative (NEGATIVE); URINE PROTEIN(semi-quant) Negative (NEGATIVE); URINE RBC 0-2 /hpf; URINE UROBILINOGEN Negative (NEGATIVE)
[2018-04-11] MEDS ORDERED: ZARXIO300 MCG/0. IJ (21:43)
[2018-04-11] MEDS ORDERED: AVASTIN 100M25 MG/ML IV ×2 (21:44→21:45)
[2018-04-11] MEDS ORDERED: DOXIL (21:44)
[2018-04-11] MEDS ORDERED: TYLENOL 500MG500 MG PO (23:38)
[2018-04-11] MEDS ORDERED: RECTIV0.4% RC (23:41)
[2018-04-11] MEDS ORDERED: COMPAZINE 110 MG/TAB PO (23:42)
[2018-04-12 00:48] VITALS: BP 128/44; PULSE 76; TEMP 98.5
[2018-04-12 04:35] VITALS: BP 110/61; PULSE 71; TEMP 98.4
[2018-04-12 07:42] LABS: BASO % 0.8 % (0.0-2.0); EOS # 0.1 (0.0-0.7); EOS % 1.2 % (0-4.0); GRAN # 3.6 (1.4-6.5); GRAN % 70.4 % (42.2-75.2); HEMOGLOBIN 10.2 g/dl (12.5-16.0); LYMPH # 0.7 (1.2-3.4); LYMPH % 14.4 % (20.0-51.0); MEAN CELL VOLUME 98 fl (80.0-100.0); MEAN CORPUSCULAR HEMOGLOBIN 31 pg (27.0-31.0); MEAN CORPUSCULAR HGB CONC 32 g/dl (33.0-37.0); MEAN PLATELET VOLUME 9.5 fl (7.4-10.4); MONO # 0.6 (0.1-0.6); MONO % 12.4 % (1.7-9.3); PLATELET COUNT 294 K/mm3 (130-400); REDCELL DISTRIBUTION WIDTH-CV 14.5 % (11.5-14.5)
[2018-04-12 07:44] LABS: HEMATOCRIT 32.3 % (37.0-47.0)
[2018-04-12 07:46] VITALS: BP 126/50; PULSE 69; TEMP 98.3
[2018-04-12 07:53] LABS: CALCIUM 8.2 mg/dL (8.4-10.2); CREATININE, serum 0.47 mg/dL (0.52-1.25); POTASSIUM 3.8 mmol/L (3.4-5.0)
[2018-04-12 11:36] VITALS: BP 107/52; PULSE 71; TEMP 98.7
[2018-04-12 13:05] LABS: PROTHROMBIN TIME 11.8 SECONDS (9.7-12.8)
[2018-04-12 15:38] LABS: PERITONEAL -POLYMORPHONUCLEAR 40.9 % (0-25); PERITONEAL FLUID RBC 2000 /mm3 (0-0)
[2018-04-12 16:17] VITALS: BP 114/53; PULSE 68; TEMP 97.4
[2018-04-12 21:44] VITALS: BP 106/47; PULSE 75; TEMP 98.3
[2018-04-13] VITALS (7 sets, daily range): BP systolic 107–120; BP diastolic 43–58; PULSE 64–89; TEMP 97.3–101.3
[2018-04-13 07:27] LABS: BASO % 0.9 % (0.0-2.0); EOS # 0.1 (0.0-0.7); EOS % 1.3 % (0-4.0); GRAN # 2.8 (1.4-6.5); GRAN % 62.9 % (42.2-75.2); HEMATOCRIT 31.7 % (37.0-47.0); HEMOGLOBIN 10.2 g/dl (12.5-16.0); LYMPH # 0.9 (1.2-3.4); LYMPH % 19.1 % (20.0-51.0); MEAN CELL VOLUME 96 fl (80.0-100.0); MEAN CORPUSCULAR HEMOGLOBIN 31 pg (27.0-31.0); MEAN CORPUSCULAR HGB CONC 32 g/dl (33.0-37.0); MEAN PLATELET VOLUME 9.5 fl (7.4-10.4); MONO # 0.7 (0.1-0.6); MONO % 15.1 % (1.7-9.3); PLATELET COUNT 333 K/mm3 (130-400); REDCELL DISTRIBUTION WIDTH-CV 14.4 % (11.5-14.5)
[2018-04-13 07:35] LABS: CALCIUM 7.6 mg/dL (8.4-10.2); CREATININE, serum 0.59 mg/dL (0.52-1.25); POTASSIUM 3.4 mmol/L (3.4-5.0)
[2018-04-14 03:23] VITALS: BP 134/66; PULSE 107; TEMP 97.6
[2018-04-14 06:20] LABS: BASO # 0.1 (0.0-0.2); BASO % 1.6 % (0.0-2.0); EOS # 0.1 (0.0-0.7); EOS % 3.3 % (0-4.0); GRAN # 2.1 (1.4-6.5); GRAN % 57.9 % (42.2-75.2); HEMOGLOBIN 10.2 g/dl (12.5-16.0); LYMPH # 0.8 (1.2-3.4); LYMPH % 21.2 % (20.0-51.0); MEAN CELL VOLUME 97 fl (80.0-100.0); MEAN CORPUSCULAR HEMOGLOBIN 31 pg (27.0-31.0); MEAN CORPUSCULAR HGB CONC 32 g/dl (33.0-37.0); MEAN PLATELET VOLUME 9.2 fl (7.4-10.4); MONO # 0.6 (0.1-0.6); MONO % 15.5 % (1.7-9.3); PLATELET COUNT 375 K/mm3 (130-400); RED BLOOD COUNT 3.31 M/mm3 (4.10-5.30); REDCELL DISTRIBUTION WIDTH-CV 14.4 % (11.5-14.5)
[2018-04-14 06:44] LABS: CALCIUM 7.7 mg/dL (8.4-10.2); CREATININE, serum 0.57 mg/dL (0.52-1.25)
[2018-04-14 06:46] LABS: POTASSIUM 3.6 mmol/L (3.4-5.0)
[2018-04-14 07:24] VITALS: BP 113/54; PULSE 66; TEMP 98.1
[2018-04-14 12:01] VITALS: BP 114/47; PULSE 69; TEMP 98
[2018-04-14 15:52] VITALS: BP 120/51; PULSE 78; TEMP 97.9
[2018-04-14 20:00] VITALS: BP 124/68; PULSE 77; TEMP 98.5
[2018-04-15 04:11] VITALS: BP 130/51; PULSE 104; TEMP 97.7
[2018-04-15 05:35] VITALS: BP 114/56; PULSE 68; TEMP 97.1
[2018-04-15 08:18] VITALS: BP 120/60; PULSE 64; TEMP 97.6
[2018-04-15 10:48] VITALS: BP 107/41; PULSE 73; TEMP 98.8
[2018-04-15 15:50] VITALS: BP 117/47; PULSE 71; TEMP 98.7
[2018-04-15 19:31] VITALS: BP 118/83; PULSE 81; TEMP 98.1
[2018-04-16 01:59] VITALS: BP 128/58; PULSE 72; TEMP 98.5
[2018-04-16 07:41] VITALS: BP 122/56; PULSE 72; TEMP 97.5
[2018-04-16 08:46] LABS: BASO # 0.1 (0.0-0.2); BASO % 1.1 % (0.0-2.0); EOS # 0.2 (0.0-0.7); EOS % 3.4 % (0-4.0); GRAN # 2.8 (1.4-6.5); GRAN % 62.2 % (42.2-75.2); HEMOGLOBIN 10.8 g/dl (12.5-16.0); LYMPH # 0.8 (1.2-3.4); LYMPH % 18.8 % (20.0-51.0); MEAN CELL VOLUME 96 fl (80.0-100.0); MEAN CORPUSCULAR HEMOGLOBIN 31 pg (27.0-31.0); MEAN CORPUSCULAR HGB CONC 32 g/dl (33.0-37.0); MEAN PLATELET VOLUME 8.8 fl (7.4-10.4); MONO # 0.6 (0.1-0.6); MONO % 14.3 % (1.7-9.3); RED BLOOD COUNT 3.51 M/mm3 (4.10-5.30); REDCELL DISTRIBUTION WIDTH-CV 14.6 % (11.5-14.5)
[2018-04-16 08:47] LABS: HEMATOCRIT 33.7 % (37.0-47.0)
[2018-04-16 08:48] LABS: PLATELET COUNT 488 K/mm3 (130-400)
[2018-04-16 09:00] LABS: CREATININE, serum 0.53 mg/dL (0.52-1.25); POTASSIUM 3.1 mmol/L (3.4-5.0)
[2018-04-16 11:24] VITALS: BP 119/58; PULSE 69; TEMP 98.1
[2018-04-16] MEDS ORDERED: AMOXICILLIN 8751 TAB PO (13:52)
[2018-04-16] MEDS ORDERED: PROBIOTIC ACID1 EAC3 PO (13:54)
[2018-04-16] MEDS ORDERED: FLORASTOR250 MG PO (13:54)
== END 2018-04-16 15:10 | disposition home or self-care (01) | DRG 372 ==
LOC: COL.ER 18:59 → MEDICAL 21:34
PROVIDERS: Emergency Medicine; Hospitalist; Nurse Practitioner; Nurse Practitioner Family; Physician Assistant
PROC: 0W9G3ZZ Drainage of Peritoneal Cavity, Percutaneous Approach (ICD-10-PCS; principal; 2018-04-12)
DX: K65.2 Spontaneous bacterial peritonitis (principal); J90 Pleural effusion, not elsewhere classified; C56.1 Malignant neoplasm of right ovary; C56.2 Malignant neoplasm of left ovary; C78.6 Secondary malignant neoplasm of retroperitoneum and peritoneum; R18.0 Malignant ascites; N13.39 Other hydronephrosis; Z66 Do not resuscitate
CPT/HCPCS: 99223-AI; 99232-AI; 99233-AI; 99239; J0696; J1644; J1650; J2185; J2543; J3010; J7030; Q9967

== ENCOUNTER → 2018-04-30 | Outpatient (CLI) | payer BC ==
[~2018-04-30] VITALS: Ht 165.1 cm; Wt 59.1 kg
[~2018-04-30] MED LIST changes: +AMOXICILLIN 8751 TAB PO; +AVASTIN 100M25 MG/ML IV; +COMPAZINE 110 MG/TAB PO; +DOXIL; +FLONASEALLERGY NS; +FLORASTOR250 MG PO; +PROBIOTIC ACID1 EAC3 PO; +RECTIV0.4% RC; +TYLENOL 500MG500 MG PO; +ZARXIO300 MCG/0. IJ
[2018-04-30 13:30] VITALS: BP 128/74; PULSE 84
[2018-04-30 14:31] VITALS: BP 122/69; PULSE 81
[2018-04-30 15:19] LABS: PERITONEAL -POLYMORPHONUCLEAR 15.7 % (0-25); PERITONEAL FLUID RBC 1000 /mm3 (0-0)
== END ==
LOC: COL.RAD 12:59
PROVIDERS: Internal Medicine
DX: C48.2 Malignant neoplasm of peritoneum, unspecified (principal)

== ENCOUNTER 2018-05-11 15:56 | Emergency (ER) | payer BC ==
[~2018-05-11] VITALS: Ht 167.6 cm; Wt 59.1 kg
[2018-05-11 16:57] LABS: BASO # 0.1 (0.0-0.2); BASO % 0.9 % (0.0-2.0); EOS % 0.3 % (0-4.0); GRAN # 11.6 (1.4-6.5); LYMPH # 1.2 (1.2-3.4); LYMPH % 8.7 % (20.0-51.0); MEAN CELL VOLUME 91 fl (80.0-100.0); MEAN CORPUSCULAR HEMOGLOBIN 30 pg (27.0-31.0); MEAN CORPUSCULAR HGB CONC 33 g/dl (33.0-37.0); MEAN PLATELET VOLUME 9.3 fl (7.4-10.4); MONO # 0.7 (0.1-0.6); MONO % 4.7 % (1.7-9.3); PLATELET COUNT 237 K/mm3 (130-400); RED BLOOD COUNT 3.96 M/mm3 (4.10-5.30); REDCELL DISTRIBUTION WIDTH-CV 14.7 % (11.5-14.5)
[2018-05-11 16:58] LABS: HEMATOCRIT 36.2 % (37.0-47.0)
[2018-05-11 17:08] LABS: ALBUMIN 3.5 gm/dL (3.5-5.0); BILIRUBIN,TOTAL 0.5 mg/dL (0.0-1.0); CALCIUM 8.6 mg/dL (8.4-10.2); CREATININE, serum 0.73 mg/dL (0.52-1.25); POTASSIUM 3.9 mmol/L (3.4-5.0); TOTAL PROTEIN 6.7 gm/dL (6.4-8.2)
[2018-05-11 17:15] LABS: COLLECTION METHOD CLEAN CATCH
[2018-05-11 17:25] LABS: PH 7 (5-8); SQUAMOUS EPITHELIAL None Seen /hpf; URINE APPEARANCE Clear; URINE BACTERIA Rare /hpf; URINE BILIRUBIN Negative (NEGATIVE); URINE BLOOD Negative (NEGATIVE); URINE COLOR Yellow; URINE GLUCOSE Negative (NEGATIVE); URINE KETONE Negative (NEGATIVE); URINE LEUKOCYTE ESTERASE Negative (NEGATIVE); URINE NITRATE Negative (NEGATIVE); URINE PROTEIN(semi-quant) Negative (NEGATIVE); URINE RBC 0-2 /hpf; URINE UROBILINOGEN Negative (NEGATIVE)
[2018-05-11] MEDS ORDERED: DOXYCYCLINE 10100 MG PO (17:33)
[2018-05-11] MEDS ORDERED: CEPHALEXIN500 M1 PO (17:33)
[2018-05-11 19:00] VITALS: BP 112/49; PULSE 75; TEMP 99.9
== END 2018-05-11 19:00 | disposition home or self-care (01) ==
LOC: COL.ER 15:56
PROVIDERS: Emergency Medicine
DX: R50.9 Fever, unspecified (principal); C56.9 Malignant neoplasm of unspecified ovary
CPT/HCPCS: J1644; J1885; J2405; J7030

== ENCOUNTER → 2018-05-28 | Outpatient (CLI) | payer BC ==
[~2018-05-28] VITALS: Ht 167.6 cm; Wt 64.3 kg
[~2018-05-28] MED LIST changes: +DOXYCYCLINE 10100 MG PO
[2018-05-28 12:52] VITALS: BP 140/80; PULSE 84
[2018-05-28 14:55] VITALS: BP 147/74; PULSE 83
[2018-05-28 15:04] LABS: PERITONEAL -POLYMORPHONUCLEAR 4.5 % (0-25); PERITONEAL FLUID RBC 0 /mm3 (0-0)
== END ==
LOC: COL.RAD 12:33
PROVIDERS: Internal Medicine
DX: C48.1 Malignant neoplasm of specified parts of peritoneum (principal); C79.81 Secondary malignant neoplasm of breast; R18.8 Other ascites; Z17.0 Estrogen receptor positive status [ER+]

== ENCOUNTER → 2018-06-25 | Outpatient (CLI) | payer BC ==
[~2018-06-25] VITALS: Ht 167.6 cm; Wt 60.5 kg
[2018-06-25 13:26] VITALS: BP 130/62; PULSE 100
[2018-06-25 14:13] VITALS: BP 137/75; PULSE 98
== END ==
LOC: COL.RAD 13:10
DX: C48.2 Malignant neoplasm of peritoneum, unspecified (principal)

== ENCOUNTER 2018-06-26 07:37 | Inpatient (IN) | payer BC ==
[~2018-06-26] VITALS: Ht 167.6 cm; Wt 51.5 kg
[2018-06-26] VITALS (326 sets, daily range): BP systolic 109–125; BP diastolic 60–70; PULSE 91–104; TEMP 98–99.1; O2SAT 84–97
[2018-06-26 08:11] LABS: BASO % 0.6 % (0.0-2.0); EOS # 0.2 (0.0-0.7); EOS % 3.7 % (0-4.0); GRAN % 61.2 % (42.2-75.2); HEMATOCRIT 41.6 % (37.0-47.0); HEMOGLOBIN 13.3 g/dl (12.5-16.0); LYMPH # 1.4 (1.2-3.4); LYMPH % 21.2 % (20.0-51.0); MEAN CELL VOLUME 89 fl (80.0-100.0); MEAN CORPUSCULAR HEMOGLOBIN 28 pg (27.0-31.0); MEAN CORPUSCULAR HGB CONC 32 g/dl (33.0-37.0); MEAN PLATELET VOLUME 8.8 fl (7.4-10.4); MONO # 0.9 (0.1-0.6); PLATELET COUNT 486 K/mm3 (130-400); RED BLOOD COUNT 4.69 M/mm3 (4.10-5.30); REDCELL DISTRIBUTION WIDTH-CV 15.9 % (11.5-14.5)
[2018-06-26 08:16] LABS: INR 1.1 (0.8-3.0); PROTHROMBIN TIME 12.8 SECONDS (9.7-12.8)
[2018-06-26 08:31] LABS: ALANINE AMINOTRANSFERASE 34 U/L (9-52); ALBUMIN 3.3 gm/dL (3.5-5.0); ALKALINE PHOSPHATASE 151 U/L (50-136); ANION GAP 8 mmol/L (7-16); AST,SGOT 56 U/L (15-37); BILIRUBIN,TOTAL 0.4 mg/dL (0.0-1.0); BLOOD UREA NITROGEN 18 mg/dL (7-17); CALCIUM 8.8 mg/dL (8.4-10.2); CARBON DIOXIDE 30 mmol/L (22-30); CHLORIDE 100 mmol/L (98-107); CREATININE, serum 0.63 mg/dL (0.52-1.25); GLUCOSE 137 mg/dL (74-106); LIPASE 315 U/L (23-300); POTASSIUM 3.7 mmol/L (3.4-5.0); SODIUM 138 mmol/L (137-145); TOTAL PROTEIN 6.7 gm/dL (6.4-8.2)
[2018-06-26 08:32] LABS: TROPONIN-I < 0.012 ng/mL (0.000-0.034)
[2018-06-26 09:51] LABS: COLLECTION METHOD CLEAN CATCH
[2018-06-26 10:05] LABS: MUCOUS Present /lpf; PH 7 (5-8); URINE APPEARANCE Clear; URINE BACTERIA None Seen /hpf; URINE BILIRUBIN Negative (NEGATIVE); URINE BLOOD Negative (NEGATIVE); URINE COLOR Yellow; URINE GLUCOSE Negative (NEGATIVE); URINE KETONE Negative (NEGATIVE); URINE LEUKOCYTE ESTERASE Negative (NEGATIVE); URINE NITRATE Negative (NEGATIVE); URINE PROTEIN(semi-quant) 1+ (NEGATIVE); URINE UROBILINOGEN Negative (NEGATIVE)
[2018-06-26 15:22] LABS: PLEURAL FLUID RBC 3000 /mm3 (0-0); PLEURAL FLUID WBC 972 /mm3
[2018-06-26 15:25] LABS: PLEURAL FLUID APPEARANCE HAZY; PLEURAL FLUID COLOR YELLOW
[2018-06-26 15:30] LABS: GLUCOSE,PLEURAL FLUID 39 mg/dL; TOTAL PROTEIN,PLEURAL FLUID 3.7 gm/dL; TRIGLYCERIDE-BODY FLUID 187 mg/dL
[2018-06-27] VITALS (839 sets, daily range): BP systolic 113–140; BP diastolic 63–92; PULSE 74–94; TEMP 97.9–98.8; O2SAT 84–98
[2018-06-27 06:02] LABS: BASO % 0.9 % (0.0-2.0); EOS # 0.1 (0.0-0.7); EOS % 2.8 % (0-4.0); GRAN # 2.8 (1.4-6.5); GRAN % 65.3 % (42.2-75.2); LYMPH # 0.7 (1.2-3.4); LYMPH % 15.5 % (20.0-51.0); MEAN CELL VOLUME 91 fl (80.0-100.0); MEAN CORPUSCULAR HGB CONC 31 g/dl (33.0-37.0); MEAN PLATELET VOLUME 9.3 fl (7.4-10.4); MONO # 0.7 (0.1-0.6); MONO % 15.3 % (1.7-9.3); PLATELET COUNT 387 K/mm3 (130-400); RED BLOOD COUNT 3.73 M/mm3 (4.10-5.30); REDCELL DISTRIBUTION WIDTH-CV 15.9 % (11.5-14.5)
[2018-06-27 06:07] LABS: INR 1.2 (0.8-3.0); PROTHROMBIN TIME 13.8 SECONDS (9.7-12.8)
[2018-06-27 06:11] LABS: ALBUMIN 2.4 gm/dL (3.5-5.0); BILIRUBIN,TOTAL 0.4 mg/dL (0.0-1.0); CALCIUM 7.6 mg/dL (8.4-10.2); CREATININE, serum 0.57 mg/dL (0.52-1.25); POTASSIUM 3.8 mmol/L (3.4-5.0); TOTAL PROTEIN 5.2 gm/dL (6.4-8.2)
[2018-06-27 06:19] LABS: PRE ALBUMIN 6.5 mg/dL (17.6-36.0)
[2018-06-27 06:26] LABS: HEMATOCRIT 34.1 % (37.0-47.0); HEMOGLOBIN 10.5 g/dl (12.5-16.0); MEAN CORPUSCULAR HEMOGLOBIN 28 pg (27.0-31.0)
[2018-06-27 12:20] LABS: GLUCOSE,PLEURAL FLUID 65 mg/dL; TOTAL PROTEIN,PLEURAL FLUID 3.3 gm/dL
[2018-06-27 12:22] LABS: PLEURAL FLUID RBC 2000 /mm3 (0-0); PLEURAL FLUID WBC 710 /mm3
[2018-06-27 12:31] LABS: PLEURAL FLUID COLOR YELLOW
[2018-06-27 12:32] LABS: PLEURAL FLUID APPEARANCE CLEAR
[2018-06-28] VITALS (360 sets, daily range): BP systolic 107–132; BP diastolic 64–70; PULSE 72–138; TEMP 98.1–98.7; O2SAT 70–100
[2018-06-28 05:33] LABS: BASO # 0.1 (0.0-0.2); BASO % 1.5 % (0.0-2.0); EOS # 0.3 (0.0-0.7); EOS % 6.5 % (0-4.0); GRAN # 2.8 (1.4-6.5); GRAN % 60.1 % (42.2-75.2); LYMPH # 0.8 (1.2-3.4); LYMPH % 17.6 % (20.0-51.0); MEAN CELL VOLUME 91 fl (80.0-100.0); MEAN CORPUSCULAR HEMOGLOBIN 29 pg (27.0-31.0); MEAN CORPUSCULAR HGB CONC 31 g/dl (33.0-37.0); MEAN PLATELET VOLUME 8.9 fl (7.4-10.4); MONO # 0.6 (0.1-0.6); MONO % 13.9 % (1.7-9.3); PLATELET COUNT 380 K/mm3 (130-400); RED BLOOD COUNT 3.85 M/mm3 (4.10-5.30); REDCELL DISTRIBUTION WIDTH-CV 15.9 % (11.5-14.5)
[2018-06-28 05:50] LABS: HEMATOCRIT 35.2 % (37.0-47.0)
[2018-06-28 05:55] LABS: INR 1.2 (0.8-3.0); PROTHROMBIN TIME 13.4 SECONDS (9.7-12.8)
[2018-06-28 06:04] LABS: ALBUMIN 2.5 gm/dL (3.5-5.0); BILIRUBIN,TOTAL 0.3 mg/dL (0.0-1.0); CREATININE, serum 0.55 mg/dL (0.52-1.25); TOTAL PROTEIN 5.2 gm/dL (6.4-8.2)
[2018-06-28 21:54] LABS: ALBUMIN 2.5 gm/dL (3.5-5.0); BILIRUBIN,TOTAL 0.3 mg/dL (0.0-1.0); CALCIUM 8.3 mg/dL (8.4-10.2); CREATININE, serum 0.56 mg/dL (0.52-1.25); MAGNESIUM 1.9 mg/dL (1.6-2.3); POTASSIUM 3.5 mmol/L (3.4-5.0); TOTAL PROTEIN 5.4 gm/dL (6.4-8.2)
[2018-06-28 22:35] LABS: HEMATOCRIT 37.5 % (37.0-47.0); HEMOGLOBIN 11.6 g/dl (12.5-16.0); MEAN CELL VOLUME 91 fl (80.0-100.0); MEAN CORPUSCULAR HEMOGLOBIN 28 pg (27.0-31.0); MEAN CORPUSCULAR HGB CONC 31 g/dl (33.0-37.0); MEAN PLATELET VOLUME 9.7 fl (7.4-10.4); PLATELET COUNT 427 K/mm3 (130-400); RED BLOOD COUNT 4.12 M/mm3 (4.10-5.30); REDCELL DISTRIBUTION WIDTH-CV 15.9 % (11.5-14.5)
[2018-06-28 23:17] LABS: BAND 1 % (0-10); BASOPHIL 3 % (0-2); EOSINOPHIL 6 % (0-4); LYMPHOCYTE 8 % (20.0-51.0); NEUTROPHILS 78 % (42.0-75.2)
[2018-06-28 23:18] LABS: HYPOCHROMIA 3+; PLATELET ESTIMATE INCREASED (NORMAL)
[2018-06-28 23:19] LABS: ANISOCYTOSIS 1+; OVALOCYTES 1+; POIKILOCYTOSIS 1+
[2018-06-28 23:21] LABS: BURR CELLS 1+; POLYCHROMASIA 1+
[2018-06-29] VITALS (8 sets, daily range): BP systolic 113–155; BP diastolic 54–73; PULSE 78–135; TEMP 97.4–99.1
[2018-06-29 06:10] LABS: BASO # 0.1 (0.0-0.2); BASO % 1.3 % (0.0-2.0); EOS # 0.2 (0.0-0.7); GRAN # 2.5 (1.4-6.5); GRAN % 61.6 % (42.2-75.2); HEMOGLOBIN 10.4 g/dl (12.5-16.0); LYMPH # 0.7 (1.2-3.4); LYMPH % 16.5 % (20.0-51.0); MEAN CELL VOLUME 91 fl (80.0-100.0); MEAN CORPUSCULAR HEMOGLOBIN 28 pg (27.0-31.0); MEAN CORPUSCULAR HGB CONC 31 g/dl (33.0-37.0); MEAN PLATELET VOLUME 9.5 fl (7.4-10.4); MONO # 0.6 (0.1-0.6); MONO % 14.3 % (1.7-9.3); PLATELET COUNT 384 K/mm3 (130-400); RED BLOOD COUNT 3.69 M/mm3 (4.10-5.30); REDCELL DISTRIBUTION WIDTH-CV 15.8 % (11.5-14.5)
[2018-06-29 06:13] LABS: HEMATOCRIT 33.6 % (37.0-47.0)
[2018-06-29 06:14] LABS: INR 1.2 (0.8-3.0); PROTHROMBIN TIME 13.4 SECONDS (9.7-12.8)
[2018-06-29 06:27] LABS: ALBUMIN 2.2 gm/dL (3.5-5.0); BILIRUBIN,TOTAL 0.3 mg/dL (0.0-1.0); CALCIUM 7.8 mg/dL (8.4-10.2); CREATININE, serum 0.53 mg/dL (0.52-1.25); POTASSIUM 4.7 mmol/L (3.4-5.0); TOTAL PROTEIN 4.8 gm/dL (6.4-8.2)
[2018-06-30 00:10] VITALS: BP 123/64; PULSE 76; TEMP 97.3
[2018-06-30 04:46] VITALS: BP 146/67; PULSE 71; TEMP 97.4
[2018-06-30 07:00] LABS: BASO % 0.2 % (0.0-2.0); GRAN # 3.1 (1.4-6.5); GRAN % 69.6 % (42.2-75.2); HEMOGLOBIN 11.3 g/dl (12.5-16.0); LYMPH # 0.8 (1.2-3.4); LYMPH % 17.6 % (20.0-51.0); MEAN CELL VOLUME 91 fl (80.0-100.0); MEAN CORPUSCULAR HEMOGLOBIN 28 pg (27.0-31.0); MEAN CORPUSCULAR HGB CONC 31 g/dl (33.0-37.0); MEAN PLATELET VOLUME 9.2 fl (7.4-10.4); MONO # 0.5 (0.1-0.6); MONO % 12.1 % (1.7-9.3); PLATELET COUNT 453 K/mm3 (130-400); RED BLOOD COUNT 4.05 M/mm3 (4.10-5.30); REDCELL DISTRIBUTION WIDTH-CV 15.6 % (11.5-14.5)
[2018-06-30 07:05] LABS: HEMATOCRIT 36.7 % (37.0-47.0)
[2018-06-30 07:11] LABS: ALBUMIN 2.7 gm/dL (3.5-5.0); BILIRUBIN,TOTAL 0.2 mg/dL (0.0-1.0); CALCIUM 8.3 mg/dL (8.4-10.2); CREATININE, serum 0.56 mg/dL (0.52-1.25); MAGNESIUM 1.9 mg/dL (1.6-2.3); POTASSIUM 4.5 mmol/L (3.4-5.0); TOTAL PROTEIN 5.7 gm/dL (6.4-8.2)
[2018-06-30 08:25] VITALS: BP 142/70; PULSE 73; TEMP 98
[2018-06-30 11:44] VITALS: BP 129/65; PULSE 76; TEMP 97.8
[2018-06-30 16:49] VITALS: BP 127/64; PULSE 81; TEMP 97.7
[2018-06-30 19:23] VITALS: BP 134/66; PULSE 88; TEMP 97.9
[2018-07-01 00:04] VITALS: BP 121/63; PULSE 79; TEMP 97.5
[2018-07-01 04:05] VITALS: BP 122/61; PULSE 72; TEMP 98.4
[2018-07-01 07:33] VITALS: BP 156/85; PULSE 83; TEMP 98.6
[2018-07-01 10:53] VITALS: BP 140/76; PULSE 87; TEMP 97.8
[2018-07-01 16:00] VITALS: BP 130/68; PULSE 90
[2018-07-01 20:34] VITALS: BP 133/69; BP 141/74; PULSE 106; PULSE 92; TEMP 97.6; TEMP 97.8
[2018-07-02 00:27] VITALS: BP 130/68; PULSE 88; TEMP 98.6
[2018-07-02 04:13] VITALS: BP 123/98; PULSE 86; TEMP 97.8
[2018-07-02 07:32] VITALS: BP 131/84; PULSE 87; TEMP 97.9
[2018-07-02] MEDS ORDERED: REGLAN 10MG10 MG/TAB PO (09:07)
== END 2018-07-02 14:23 | disposition home health service (06) | DRG 853 ==
LOC: COL.ER 07:37 → ICU 10:14 → MEDICAL 10:14
PROVIDERS: Emergency Medicine; Internal Medicine; Internal Medicine Pulmonary Disease; Nurse Practitioner Family; Urology
PROC: 0W9B3ZX Drainage of Left Pleural Cavity, Percutaneous Approach, Diagnostic (ICD-10-PCS; 2018-06-26)
PROC: 0W993ZX Drainage of Right Pleural Cavity, Percutaneous Approach, Diagnostic (ICD-10-PCS; 2018-06-27)
PROC: 0T778DZ Dilation of Left Ureter with Intraluminal Device, Via Natural or Artificial Opening Endoscopic (ICD-10-PCS; principal; 2018-06-29 14:15)
PROC: BT1FZZZ Fluoroscopy of Left Kidney, Ureter and Bladder (ICD-10-PCS; 2018-06-29 14:15)
DX: A41.9 Sepsis, unspecified organism (principal); J96.01 Acute respiratory failure with hypoxia; C78.6 Secondary malignant neoplasm of retroperitoneum and peritoneum; Z66 Do not resuscitate; C56.1 Malignant neoplasm of right ovary; C56.2 Malignant neoplasm of left ovary; J91.0 Malignant pleural effusion; R18.0 Malignant ascites; E44.0 Moderate protein-calorie malnutrition; Z68.1 Body mass index [BMI] 19.9 or less, adult; C79.81 Secondary malignant neoplasm of breast; C38.0 Malignant neoplasm of heart; N13.1 Hydronephrosis with ureteral stricture, not elsewhere classified; Z85.3 Personal history of malignant neoplasm of breast; R65.20 Severe sepsis without septic shock
CPT/HCPCS: 99223-AI; 99232-AI; 99233-AI; 99239; A4216; C1751; C1769; C1894; C2617; J0692; J1100; J1644; J1650; J2185; J2270; J2405; J2550; J2704; J3010; J3370; J3480; J7030; J7040; J7050; J7120; Q9967

== ENCOUNTER 2018-07-04 14:47 | Day surgery (SDC) | payer BC ==
[~2018-07-04] VITALS: Ht 165.1 cm; Wt 62.7 kg
[~2018-07-04 14:47] MED LIST changes: +REGLAN 10MG10 MG/TAB PO
[2018-07-04 15:17] VITALS: BP 132/85; PULSE 98; TEMP 98.6
[2018-07-04 17:15] VITALS: BP 143/75; PULSE 87; TEMP 98.7
[2018-07-04 17:30] VITALS: BP 147/74; PULSE 80
[2018-07-04] MEDS ORDERED: NORCO 325 MG-7.1 TAB PO (17:38)
[2018-07-04] MEDS ORDERED: CEPHALEXIN500 M1 PO (17:40)
[2018-07-04 17:45] VITALS: BP 143/69; PULSE 85
[2018-07-04 18:00] VITALS: BP 139/69; PULSE 85
[2018-07-04 18:15] VITALS: PULSE 81
== END 2018-07-04 18:35 | disposition home or self-care (01) ==
LOC: SDCO 14:47
DX: C34.90 Malignant neoplasm of unspecified part of unspecified bronchus or lung (principal); J90 Pleural effusion, not elsewhere classified; C79.60 Secondary malignant neoplasm of unspecified ovary; R18.8 Other ascites; G62.0 Drug-induced polyneuropathy; F41.9 Anxiety disorder, unspecified; R60.0 Localized edema; K21.9 Gastro-esophageal reflux disease without esophagitis; Z79.899 Other long term (current) drug therapy
CPT/HCPCS: A7048; C1729; J2270; J2704; J7030

== ENCOUNTER 2018-07-11 06:59 | Outpatient (CLI) | payer BC ==
[~2018-07-11] VITALS: Ht 166.4 cm; Wt 58.5 kg
[2018-07-11] VITALS (7 sets, daily range): BP systolic 99–113; BP diastolic 38–58; PULSE 80–97; TEMP 97.7
--- NOTE | 2018-07-11 08:00 | NUR ---
Initial visit; Merry and her thanked [employer] for offering prayer and encouragement prior to her Procedure with Dr. Urbina.
[2018-07-11] MEDS ORDERED: TRANSDERM-0.5 MG/21 TD (08:20)
[2018-07-11] MEDS ORDERED: ATIVAN 0.50.5 MG/TAB PO (08:21)
--- NOTE | 2018-07-11 09:30 | NUR ---
Patient returns to room 7 per cart and arouses to verbal stimuli. Bandaid on the left mid back dry. Temp 99 temporal. Room air sats 91%. IV fluids infusing via port a catheter. Spouse in room and call light in reach.
--- NOTE | 2018-07-11 09:35 | NUR ---
Portable CXR done.
--- NOTE | 2018-07-11 09:45 | NUR ---
Resting at intervals and sipping on cranberry juice.
--- NOTE | 2018-07-11 10:00 | NUR ---
Room air sats 91%. Sipping on cranberry juice. Spouse in room.
--- NOTE | 2018-07-11 10:12 | NUR ---
Received report of CXR per Dr. Thomas and CXR clear. Patient maybe discharged per Dr. Urbina.
--- NOTE | 2018-07-11 10:15 | NUR ---
Informed patient and spouse that she maybe discharged to home when ready. Patient wants cracker to take antibiotic pill. Given cracker and takes own Keflex with sip of water.
--- NOTE | 2018-07-11 10:30 | NUR ---
Patient had 200cc's emesis of juice and water. Offered IV Zofran and states that no antiemetic is effective and does not want this. IV fluids of NS infuse at 100cc/hr and will allow the patient to rest.
--- NOTE | 2018-07-11 11:00 | NUR ---
Resting and taking few sips of water. IV fluids continue to infuse.
--- NOTE | 2018-07-11 11:07 | NUR ---
Port a catheter deaccessed and site free of redness. Bandaid on site. Port flushed with normal saline and Heparin per protocol prior to be deaccessed.
--- NOTE | 2018-07-11 11:19 | NUR ---
Patient dismissed to home per private vehicle driven by spouse with instructions in hand.
== END 2018-07-11 11:19 | disposition home or self-care (01) ==
LOC: SDCO 06:59
DX: J91.0 Malignant pleural effusion (principal); I50.30 Unspecified diastolic (congestive) heart failure; K21.9 Gastro-esophageal reflux disease without esophagitis
CPT/HCPCS: J2704; J3010; J7030